=== PATIENT | female | born 1990 | race Caucasian/White ===

== ENCOUNTER 2019-11-16 22:16 | Inpatient (IN) ==
[2019-11-16] MEDS ORDERED: methylPREDNISolone SOD SUCC 125 MG/2 ML VIAL IV ONE (22:20)
[2019-11-16] MEDS ORDERED: 0.9 % SODIUM CHLORIDE 1,000 ML IV ONE (22:20)
[2019-11-16] MEDS ORDERED: MAGNESIUM SULFATE 2 GM/50 ML BAG IV ONE (22:30)
[2019-11-16] MEDS ORDERED: EPINEPHrine 1 MG/ML AMPUL SQ ONE (22:30)
[2019-11-16] MEDS ORDERED: ALBUTEROL SULFATE 5 MG/ML NEB SOLUTION BOTTLE NEB ONE (22:32)
--- NOTE | 2019-11-16 22:35 | Emergency Department Note ---
General Adult HPI - General Chief complaint: Cold/Flu Symptoms Stated complaint: cough, fever, asthma Time Seen by Provider: 11/16/19 22:19 Source: patient, EMS Mode of arrival: EMS Limitations: no limitations - History of Present Illness HPI Narrative: 29-year-old female comes in complaining of shortness of breath with wheezing and cough. She has been sick for the last 15 days and has had a fever. Has not taken Tylenol for several days however. No nausea vomiting or diarrhea. She had 1 breathing treatment at home and then [address] and is still wheezing. She does have a history of asthma - Related Data Home Medications Medication Instructions Recorded Confirmed epinephrine 0.3 mg/0.3 mL 0.3 mg IM ONCE 10/25/18 11/12/19 injection, auto-injector multivitamin 1 tab PO QAM 10/25/18 11/12/19 Previous Rx's Medication Instructions Recorded norgestimate-ethinyl estradiol 1 tab PO QDAY #28 tab 07/11/19 albuterol sulfate 90 mcg/actuation 90 mcg INHALATION Q6H PRN #18 g 09/18/19 aerosol inhaler sertraline 50 mg tablet 50 mg PO QDAY #30 tab 09/18/19 Albuterol Sulfate [Proair Hfa] 1 - 2 puff INH Q4-6HP PRN #1 11/05/19 hfa.aer.ad trazodone 50 mg tablet See Rx Instructions .ROUTE 11/05/19 .COMPLEX #30 tablet ipratropium 0.5 mg-albuterol 3 mg 3 ml INHALATION QID PRN #90 ml 11/12/19 (2.5 mg base)/3 mL nebulization soln nebulizers See Rx Instructions .ROUTE 11/12/19 .MEDSUPPLY #1 each prednisone 50 mg tablet 50 mg PO QDAY 5 Days #5 tab 11/12/19 Allergies Allergy/AdvReac Type Severity Reaction Status Date / Time latex Allergy Severe Other Verified 11/05/19 12:07 Review of Systems All systems ED: reviewed and negative except as stated. Past Medical History - Past Medical History Attestation: Yes: The following information was validated with the patient. Medical history: Reports: asthma Surgical history ED: Reports: no surgical history - Social History smoking status: Never smoker Alcohol use: Reports: Rarely Drug use: Reports: none Physical Exam Some distress secondary to coughing fits. Alert and oriented. Normocephalic atraumatic. Conjunctive are clear sclerae white nonicteric. No nasal discharge or congestion. Oropharynx pink and moist. Posterior pharynx is clear. Neck is supple without lymphadenopathy or thyromegaly. Heart is tachycardic. I cannot hear a murmur. Lungs with wheezing throughout all lung [place] and rhonchi. When she takes a deep breath she coughs. She is unable to speak in full sentences. Abdomen is soft nontender nondistended. No peritoneal signs or guarding. No pedal edema Limitations: no limitations Course Vital Signs Temperature 100.2 F H 11/16/19 22:17 Pulse Rate 133 H 11/16/19 22:17 Respiratory Rate 22 11/16/19 22:17 Blood Pressure 140/97 11/16/19 22:17 Pulse Oximetry (%) 98 11/16/19 22:17 Temperature 98.8 F 11/16/19 23:35 Pulse Rate 120 H 11/17/19 00:21 Respiratory Rate 16 11/17/19 00:21 Blood Pressure 122/77 11/17/19 00:16 Pulse Oximetry (%) 96 11/17/19 00:21 Medical Decision Making - Lab Data Lab results reviewed: Yes I reviewed the patient's lab results. Result diagrams: 11/16/19 22:45 11/16/19 22:45 Lab Results 11/16/19 11/16/19 11/16/19 Range/Units 22:45 22:45 22:45 WBC 17.3 H (4.50-11.00) K/mcL RBC 4.31 (3.59-5.38) M/mcL Hgb 12.2 (11.2-15.7) g/dL Hct 36.8 (34.1-44.9) % POC Hct 38.0 (36.0-48.0) % MCV 85.4 (80.0-100.0) fL MCH 28.3 (26.0-34.0) pg MCHC 33.2 (31.0-36.0) g/dL RDW 14.3 (11.5-14.5) % Plt Count 302 (140-440) K/mcL MPV 10.7 H (7.4-10.4) fL Gran % 75.6 (38.0-78.0) % Lymph % (Auto) 18.5 (15.5-49.0) % [place] % (Auto) 5.8 (1.0-12.0) % Eos % (Auto) 0 (0.0-7.0) % Baso % (Auto) 0.1 (0.0-2.0) % Gran # 13.08 H (1.80-8.00) K/mcL Lymph # (Auto) 3.20 (1.50-4.80) K/mcL [place] # (Auto) 1.01 H (0.10-0.90) K/mcL Eos # (Auto) 0 (0.00-0.70) K/mcL Baso # (Auto) 0.02 (0.00-0.30) K/mcL VBG Lactic Acid 2.6 H (0.5-2.0) mmol/L POC Sodium 140 (133-145) mmol/L Sodium 138 (133-145) mmol/L POC Potassium 3.8 (3.3-5.1) mmol/L Potassium 4.0 (3.3-5.1) mmol/L POC Chloride 108 (96-108) mmol/L Chloride 105 (96-108) mmol/L Carbon Dioxide 20 L (22-30) mmol/L POC Total CO2 22 (22-30) mmol/L Anion Gap 13.0 (8-16) POC BUN 12 (6-20) mg/dl BUN 12 (6-20) mg/dl Creatinine 0.6 (0.6-1.1) mg/dl POC Creatinine 0.5 L (0.6-1.1) mg/dl GFR Calculation 121 Glucose 113 H (70-105) mg/dL POC Glucose 112 H (70-105) mg/dL Calcium 8.9 (8.6-10.4) mg/dl POC WB Ioniz Calcium 1.17 (1.16-1.32) mmol/L Magnesium 1.9 (1.6-2.5) mg/dL Total Bilirubin < 0.2 (0.0-1.0) mg/dL AST 19 (0-37) U/l ALT 33 (0-40) U/l Alkaline Phosphatase 50 (39-117) U/L Troponin T (0-0.03) ng/ml NT-Pro-B Natriuret Pep 65.2 (0-125) pg/ml Total Protein 6.9 (5.9-8.4) gm/dL Albumin 4.0 (3.2-5.2) gm/dL Globulin 2.9 (2.2-3.7) gm/dL Albumin/Globulin Ratio 1.4 (1.0-2.3) Lipase 23 (7-60) U/L Procalcitonin (<0.10) ng/mL 11/16/19 11/16/19 Range/Units 22:45 22:45 WBC (4.50-11.00) K/mcL RBC (3.59-5.38) M/mcL Hgb (11.2-15.7) g/dL Hct (34.1-44.9) % POC Hct (36.0-48.0) % MCV (80.0-100.0) fL MCH (26.0-34.0) pg MCHC (31.0-36.0) g/dL RDW (11.5-14.5) % Plt Count (140-440) K/mcL MPV (7.4-10.4) fL Gran % (38.0-78.0) % Lymph % (Auto) (15.5-49.0) % [place] % (Auto) (1.0-12.0) % Eos % (Auto) (0.0-7.0) % Baso % (Auto) (0.0-2.0) % Gran # (1.80-8.00) K/mcL Lymph # (Auto) (1.50-4.80) K/mcL [place] # (Auto) (0.10-0.90) K/mcL Eos # (Auto) (0.00-0.70) K/mcL Baso # (Auto) (0.00-0.30) K/mcL VBG Lactic Acid (0.5-2.0) mmol/L POC Sodium (133-145) mmol/L Sodium (133-145) mmol/L POC Potassium (3.3-5.1) mmol/L Potassium (3.3-5.1) mmol/L POC Chloride (96-108) mmol/L Chloride (96-108) mmol/L Carbon Dioxide (22-30) mmol/L POC Total CO2 (22-30) mmol/L Anion Gap (8-16) POC BUN (6-20) mg/dl BUN (6-20) mg/dl Creatinine (0.6-1.1) mg/dl POC Creatinine (0.6-1.1) mg/dl GFR Calculation Glucose (70-105) mg/dL POC Glucose (70-105) mg/dL Calcium (8.6-10.4) mg/dl POC WB Ioniz Calcium (1.16-1.32) mmol/L Magnesium (1.6-2.5) mg/dL Total Bilirubin (0.0-1.0) mg/dL AST (0-37) U/l ALT (0-40) U/l Alkaline Phosphatase (39-117) U/L Troponin T < 0.01 (0-0.03) ng/ml NT-Pro-B Natriuret Pep (0-125) pg/ml Total Protein (5.9-8.4) gm/dL Albumin (3.2-5.2) gm/dL Globulin (2.2-3.7) gm/dL Albumin/Globulin Ratio (1.0-2.3) Lipase (7-60) U/L Procalcitonin 0.03 (<0.10) ng/mL Influenza swab is negative ABG shows a pH 7.47, CO2 32 and PO2 of 90. Lactic acid was 2.6 - Radiology Data Radiology results reviewed: Yes I reviewed the patient's radiology results. Chest x-ray is consistent with a viral pneumonia versus bronchitis, compatible with COVID Disposition Pt seen by [facility]/PA only: No Clinical Impression: Suspected COVID-19 virus infection, Viral pneumonia Asthma with acute exacerbation Qualifiers: Asthma severity: unspecified severity Asthma persistence: unspecified Qualified Code(s): J45.901 - Unspecified asthma with (acute) exacerbation Summary: Start IV fluids and Solu-Medrol as well. Magnesium sulfate drip plus epinephrine. Differential diagnosis includes bacterial versus viral infection triggering asthma infection. This could be causing bronchitis versus pneumonia or other pulmonary issue. We will get an x-ray and laboratory. Check flu swab. Presumed COVID but we will not test unless she needs to be hospitalized. I was going to do 10 mg of albuterol nebulized over an hour, heart neb, but respiratory therapy informed me that this is contraindicated if she has the COVID. In light of her blood gas which showed compensated hyperventilation, we will monitor for now Her tachycardia calm down a little bit into the 110s and down even into the 90s at times. However she still had trouble speaking full sentences. She could not take a full breath without tight coughing fits. Leukocytosis of 17 is noted. Chest x-ray is compatible with viral pneumonia versus bronchitis compatible with the COVID. Her ABG appears to be compensated hyperventilation and she is currently normoxic but I think she needs to come the hospital for further monitoring and care she is clearly having trouble breathing here. I briefly discussed these things with the patient she is agreeable with coming in the hospital for IV steroids and further testing and treatment I discussed the situation with Dr. Sykes , our hospitalist, who agreed to accept the patient for further care and evaluation in the hospital. He agreed with going ahead and starting treatment with Plaquenil and azithromycin. We will continue albuterol treatments as well as IV steroids and fluids. We will get a baseline EKG. I wrote holding orders for him; we will go ahead and test for viral respiratory panel and COVID Disposition: Xfer As Inpt ([facility]) Condition: Fair Referrals: Mare Boyer ARNP [Primary Care Provider] -
[2019-11-16] MEDS ORDERED: ACETAMINOPHEN 325 MG TABLET PO ONE (22:38)
[2019-11-16 22:57] LABS: POC Blood Urea Nitrogen 12 mg/dl (6-20); POC CO2 22 mmol/L (22-30); POC Calcium, Ionized 1.17 mmol/L (1.16-1.32); POC Chloride 108 mmol/L (96-108); POC Creatinine 0.5 mg/dl (0.6-1.1); POC Glucose, Random 112 mg/dL (70-105); POC Potassium 3.8 mmol/L (3.3-5.1); POC Sodium 140 mmol/L (133-145)
[2019-11-16 23:24] LABS: Basophils # (Auto) 0.02 K/mcL (0.00-0.30); Basophils % (Auto) 0.1 % (0.0-2.0); Eosinophils # (Auto) 0 K/mcL (0.00-0.70); Eosinophils % (Auto) 0 % (0.0-7.0); Granulocytes % (Auto) 75.6 % (38.0-78.0); Hematocrit 36.8 % (34.1-44.9); Hemoglobin 12.2 g/dL (11.2-15.7); Lymphocytes % (Auto) 18.5 % (15.5-49.0); Mean Cell Volume 85.4 fL (80.0-100.0); Mean Corpuscular HGB Conc 33.2 g/dL (31.0-36.0); Mean Platelet Volume 10.7 fL (7.4-10.4); Monocytes # (Auto) 1.01 K/mcL (0.10-0.90); Monocytes % (Auto) 5.8 % (1.0-12.0); Platelet Count 302 K/mcL (140-440); RBC 4.31 M/mcL (3.59-5.38); Red Cell Distribution Width 14.3 % (11.5-14.5); WBC 17.3 K/mcL (4.50-11.00)
[2019-11-16 23:46] LABS: proBNP 65.2 pg/ml (0-125)
[2019-11-16 23:49] LABS: ALT/SGPT 33 U/l (0-40); AST/SGOT 19 U/l (0-37); Albumin/Globulin Ratio 1.4 (1.0-2.3); Alkaline Phosphatase 50 U/L (39-117); Bilirubin,Total < 0.2 mg/dL (0.0-1.0); Blood Urea Nitrogen 12 mg/dl (6-20); Calcium 8.9 mg/dl (8.6-10.4); Carbon Dioxide 20 mmol/L (22-30); Chloride 105 mmol/L (96-108); Globulin 2.9 gm/dL (2.2-3.7); Glomerular Filtration Rate 121; Glucose 113 mg/dL (70-105)
[2019-11-17] MEDS ORDERED: AZITHROMYCIN 250 MG TABLET PO ONE (00:27)
[2019-11-17] MEDS ORDERED: IPRATROPIUM/ALBUTEROL SULFATE 1 PUFF INHALER INH SCH (00:29)
[2019-11-17] MEDS ORDERED: ONDANSETRON 4 MG/2 ML VIAL IV PRN ×2 (00:30→09:45)
[2019-11-17] MEDS ORDERED: ALBUTEROL SULFATE 1 PUFF INHALER INH PRN (01:26)
[2019-11-17] MEDS ORDERED: HYDROXYCHLOROQUINE 200 MG TABLET PO ONE (01:37)
[2019-11-17] MEDS: 0.9 % SODIUM CHLORIDE 1,000 ML IV SCH ×2 (01:38→23:25)
[2019-11-17] MEDS ORDERED: LEVALBUTEROL 0.63 MG/3 ML AMPUL.NEB NEB PRN (04:53)
[2019-11-17] MEDS ORDERED: METOPROLOL TARTRATE 5 MG/5 ML VIAL IV PRN (04:55)
[2019-11-17] MEDS ORDERED: LEVALBUTEROL 1.25 MG/3 ML AMPUL.NEB ONE (04:58)
[2019-11-17] MEDS: guaiFENesin/DEXTROMETHORPHAN ORAL SOL PO PRN (05:06)
[2019-11-17] MEDS: LEVALBUTEROL 1.25 MG/3 ML AMPUL.NEB NEB PRN ×2 (05:09→09:15)
[2019-11-17] MEDS ORDERED: methylPREDNISolone SOD SUCC 125 MG/2 ML VIAL IV SCH (06:00)
[2019-11-17] MEDS: HYDROXYCHLOROQUINE 200 MG TABLET PO SCH ×3 (08:27→21:10)
--- NOTE | 2019-11-17 09:29 | XRay Report ---
HISTORY: Wheezing and cough with fever FINDINGS: The lungs are clear and normally expanded. The heart size, pulmonary vasculature, mediastinum, liana and pleura are normal. There has been little change since 11/12/19, allowing for differences in technique. IMPRESSION: Normal exam Interpreted and Authenticated by: iWlbert Barr 11/17/19
--- NOTE | 2019-11-17 10:06 | Internal Med History&Physical ---
Medical - H&P: [facility] Patient information: Note initiated : 11/17/19 at 10:03 am Service Date, if different from initiated Date: [] Patient: Neida Emerson a 29 y/o F admitted on 11/17/19 for cough, fever, asthma. Chief Complaint: [sob x 15 days] History of present illness: Ms. Emerson is a 29 year old F with a history of asthma who presented to the ER due to increasing shortness of breath for 15 days. As per patient, patient started to have shortness of breath 15 days ago, which has been progressively worsening. She also has mild cough with small amount of clear sputum. Patient states that she went to [facility] for a meeting earlier this month. She developed these symptoms mentioned above 1 day after she came back. Otherwise she denies headache, dizziness, chest pain, abdominal pain, dysuria, nausea, vomiting or diarrhea. In the ER, respiratory panel and Covid 19 were sent. Azithromycin and hydroxych loroquine were started. When I saw this patient, she told me that she has a hx of asthma but this time is different from previous asthma attacks. Review of systems: Positive for anemia all other systems were reviewed and are negative. Medical - H&P: PMH Medical history: Asthma Family history: reviewed and not pertinent (Mother has diabetes) Social history: Denies smoking, drinking alcohol or using drugs Drug use: none Alcohol use: none Medical - H&P: Meds Home Medications Medication Instructions Recorded Confirmed Type epinephrine 0.3 mg/0.3 mL 0.3 mg IM ONCE 10/25/18 11/17/19 History injection, auto-injector norgestimate-ethinyl estradiol 1 tab PO QDAY #28 tab 07/11/19 11/17/19 Rx albuterol sulfate 90 mcg/actuation 90 mcg INHALATION Q6H PRN #18 g 09/18/19 11/17/19 Rx aerosol inhaler sertraline 50 mg tablet 50 mg PO QDAY #30 tab 09/18/19 11/17/19 Rx Albuterol Sulfate [Proair Hfa] 1 - 2 puff INH Q4-6HP PRN #1 11/05/19 11/17/19 Rx hfa.aer.ad trazodone 50 mg tablet See Rx Instructions .ROUTE 11/05/19 11/17/19 Rx .COMPLEX #30 tablet ipratropium 0.5 mg-albuterol 3 mg 3 ml INHALATION QID PRN #90 ml 11/12/19 11/17/19 Rx (2.5 mg base)/3 mL nebulization soln nebulizers See Rx Instructions .ROUTE 11/12/19 11/17/19 Rx .MEDSUPPLY #1 each prednisone 50 mg tablet 50 mg PO QDAY 5 Days #5 tab 11/12/19 11/17/19 Rx Allergies Allergy/AdvReac Type Severity Reaction Status Date / Time latex Allergy Severe Other Verified 11/05/19 12:07 Medical - H&P: Exam - Constitutional Vitals: Temp Pulse Resp BP Pulse Ox 99.3 F H 126 H 15 108/87 96 11/17/19 08:01 11/17/19 09:58 11/17/19 09:58 11/17/19 09:01 11/17/19 09:58 - Other Additional findings: General - NAD, sitting up in bed, well groomed Eyes - PERRLA, EOM intact ENT no rhinorrhea, no noticeable or palpable swelling, no redness or rash around throat or on face Neck supple, no JVD, no thyromegaly Respiratory: Lungs - no use of accessory muscles, wheezing and rhonchi b/l. Cardiovascular - RRR no m/r/g, GI - Normal bowel sounds, no distended, soft and no tenderness Extremeties - No edema, cyanosis or clubbing Hemo/lymphatic/immune no lymphadenopathy Neurological Alert and oriented x 3, CN 2-12 grossly intact, no focal neurological deficits. Psychiatry flat affect Medical - H&P: Reslt - Labs CBC & Chem 7: 11/16/19 22:45 11/16/19 22:45 Labs: Short CBC 11/16/19 Range/Units 22:45 WBC 17.3 H (4.50-11.00) K/mcL Hgb 12.2 (11.2-15.7) g/dL Hct 36.8 (34.1-44.9) % Plt Count 302 (140-440) K/mcL BMP 11/16/19 22:45 Sodium 138 Potassium 4.0 Chloride 105 Carbon Dioxide 20 L BUN 12 Creatinine 0.6 Glucose 113 H Calcium 8.9 Cardiac Enzymes 11/16/19 Range/Units 22:45 Troponin T < 0.01 (0-0.03) ng/ml Liver Function 11/16/19 Range/Units 22:45 Total Bilirubin < 0.2 (0.0-1.0) mg/dL AST 19 (0-37) U/l ALT 33 (0-40) U/l Alkaline Phosphatase 50 (39-117) U/L Albumin 4.0 (3.2-5.2) gm/dL Medical - H&P: A/P - Narrative A/P Narrative: Assessment: 1. SOB/cough - Covid19 infection? 2. Asthma exacerbation 3. Sinus tachycardia 4. Leukocytosis Plan: 1. CXR -no significance Respiratory panel and Covid 19 were sent QTC 448 on EKG Hydroxychloroquine 200mg tid and azithromycin were started in the ER. I would like to continue both now and will change doses tomorrow. 2. We will treat the patient as asthma attack Solu-Medrol was started in the ER. Although steroid is contraindicated in Covid 19 pts, I feel I have to give her some steroid since she has obvious wheezing. I will decrease the dose to 62.5 mg bid from Q6hrs. inhalers 3. I would like to start low-dose metoprolol 12.5 mg twice daily for her sinus tachycardia 4. White blood cells 17.3 Procalcitonin negative Azithromycin 5. DVT prophylaxis: Lovenox 6. CODE STATUS: Full
[2019-11-17] MEDS ORDERED: METOPROLOL TARTRATE 25 MG TABLET PO SCH (10:29)
[2019-11-17] MEDS ORDERED: 0.9 % SODIUM CHLORIDE 500 ML IV ONE (12:46)
[2019-11-17] MEDS: ENOXAPARIN 40 MG/0.4 ML SYRINGE SQ SCH (12:50)
[2019-11-17] MEDS: IPRATROPIUM 2.5 ML AMPUL.NEB NEB SCH ×4 (12:51→23:26)
[2019-11-17] MEDS: 0.9 % SODIUM CHLORIDE 10 ML SYRINGE IV SCH ×2 (16:19→21:13)
[2019-11-17] MEDS ORDERED: ACETAMINOPHEN 325 MG TABLET PO PRN (18:29)
[2019-11-17] MEDS: methylPREDNISolone SOD SUCC 125 MG/2 ML VIAL IV SCH (21:10)
[2019-11-17] MEDS: DOCUSATE SODIUM 100 MG CAPSULE PO SCH (21:10)
[2019-11-17] MEDS: traZODone HCL 50 MG TABLET PO SCH (21:10)
[2019-11-17] MEDS: Norgestimate-Ethinyl Estradiol [Tri-Sprintec Tablet] PO SCH (21:12)
[2019-11-18] MEDS: IPRATROPIUM 2.5 ML AMPUL.NEB NEB SCH ×2 (04:05→08:07)
[2019-11-18] MEDS: 0.9 % SODIUM CHLORIDE 10 ML SYRINGE IV SCH ×3 (05:38→21:44)
[2019-11-18 06:48] LABS: Basophils # (Auto) 0.02 K/mcL (0.00-0.30); Basophils % (Auto) 0.1 % (0.0-2.0); Eosinophils # (Auto) 0 K/mcL (0.00-0.70); Eosinophils % (Auto) 0 % (0.0-7.0); Granulocytes % (Auto) 82.9 % (38.0-78.0); Hematocrit 35.9 % (34.1-44.9); Hemoglobin 11.9 g/dL (11.2-15.7); Lymphocytes # (Auto) 2.87 K/mcL (1.50-4.80); Lymphocytes % (Auto) 13.8 % (15.5-49.0); Mean Cell Volume 85.5 fL (80.0-100.0); Mean Corpuscular HGB Conc 33.1 g/dL (31.0-36.0); Mean Platelet Volume 10.9 fL (7.4-10.4); Monocytes # (Auto) 0.66 K/mcL (0.10-0.90); Monocytes % (Auto) 3.2 % (1.0-12.0); Platelet Count 322 K/mcL (140-440); Red Cell Distribution Width 14.5 % (11.5-14.5); WBC 20.9 K/mcL (4.50-11.00)
[2019-11-18 06:59] LABS: Phosphorous 3.8 mg/dL (2.7-4.5)
[2019-11-18 07:06] LABS: ALT/SGPT 42 U/l (0-40); AST/SGOT 18 U/l (0-37); Albumin 3.8 gm/dL (3.2-5.2); Albumin/Globulin Ratio 1.3 (1.0-2.3); Alkaline Phosphatase 47 U/L (39-117); Bilirubin,Total 0.2 mg/dL (0.0-1.0); Blood Urea Nitrogen 15 mg/dl (6-20); Calcium 9.1 mg/dl (8.6-10.4); Carbon Dioxide 22 mmol/L (22-30); Chloride 104 mmol/L (96-108); Globulin 2.9 gm/dL (2.2-3.7); Glomerular Filtration Rate 121; Glucose 132 mg/dL (70-105)
[2019-11-18] MEDS: PANTOPRAZOLE 40 MG TABLET PO SCH (07:24)
[2019-11-18] MEDS: LEVALBUTEROL 1.25 MG/3 ML AMPUL.NEB NEB PRN (08:08)
[2019-11-18] MEDS ORDERED: IPRATROPIUM/ALBUTEROL 3 ML AMPUL.NEB NEB PRN (08:14)
[2019-11-18] MEDS ORDERED: ALBUTEROL SULFATE 1 PUFF INHALER INH PRN (08:19)
[2019-11-18] MEDS: methylPREDNISolone SOD SUCC 125 MG/2 ML VIAL IV SCH (08:52)
[2019-11-18] MEDS: ENOXAPARIN 40 MG/0.4 ML SYRINGE SQ SCH (08:52)
[2019-11-18] MEDS: HYDROXYCHLOROQUINE 200 MG TABLET PO SCH ×2 (08:53→21:44)
[2019-11-18] MEDS: SERTRALINE 50 MG TABLET PO SCH (08:53)
[2019-11-18] MEDS: DOCUSATE SODIUM 100 MG CAPSULE PO SCH ×2 (08:53→21:44)
[2019-11-18] MEDS: AZITHROMYCIN 250 MG in DEXTROSE 5% IN WATER 250 ML IV SCH (10:29)
--- NOTE | 2019-11-18 13:25 | Internal Med Progress Note ---
Medical - PN: Subj Patient information: Note initiated : 11/18/19 at 1:21 pm Service Date, if different from initiated Date: [] Patient: Neida Emerson a 29 y/o F admitted on 11/17/19 for cough, fever, asthma. Chief Complaint: [] Interval history: Ms. Emerson is a 29 year old F with a history of asthma who presented to the ER due to increasing shortness of breath for 15 days. 11/17 Pt feels improved in breathing but still has chest tightness. Denies sore throat fever, chills, or nausea vomiting. Covid-19 result still pending - Constitutional Vitals: Vital Signs Temp Pulse Resp BP Pulse Ox 98.5 F 94 H 21 113/71 97 11/18/19 08:00 11/18/19 12:00 11/18/19 12:00 11/18/19 12:00 11/18/19 12:00 Period Temp Pulse Resp BP Sys/Jones Pulse Ox Last 24 Hr 98.2 F-99.0 F 62-119 14-50 105-125/60-84 94-99 Intake and Output 11/17/19 11/18/19 11/18/19 21:59 05:59 13:59 Intake Total 1500 Output Total 7049 814 5157 Balance 500 -650 -2150 Weight 69.082 kg 69.082 kg Patient Weight 11/19/19 05:59 Weight 69.082 kg Intake & Output: Intake & Output 11/17/19 11/18/19 11/18/19 21:59 05:59 13:59 Intake Total 1500 Output Total 3204 448 5949 Balance 500 -650 -2150 Weight 69.082 kg 69.082 kg Intake: IV 1500 Sodium Chloride 0.9% 1,000 ml @ 1000 50 mls/hr IV .Q20H [facility] Rx#: [id number] Sodium Chloride 0.9% 500 ml @ 500 Wide Open 250 mls/hr IV BOLUS ONE Rx#:[id number] Output: Void Amount 3728 119 7782 Urine/Stool Mix 800 Other: Meal Breakfast Percent of Meal Consumed 100% Urine Appearance Clear Clear Urine Color Pale Pale Urine Odor Normal Normal Stool Size Moderate Stool Color Brown Stool Consistency Soft Formed Loose # Voids 1 - Additional findings Additional findings: General - NAD, sitting up in bed, well groomed Eyes - PERRLA, EOM intact ENT no rhinorrhea, no noticeable or palpable swelling, no redness or rash around throat or on face Neck supple, no JVD, no thyromegaly Respiratory: Lungs - no use of accessory muscles, wheezing and rhonchi b/l (disappeared). Cardiovascular - RRR no m/r/g, GI - Normal bowel sounds, no distended, soft and no tenderness Extremeties - No edema, cyanosis or clubbing Hemo/lymphatic/immune no lymphadenopathy Neurological Alert and oriented x 3, CN 2-12 grossly intact, no focal n eurological deficits. Psychiatry flat affect Medical - PN: Obj Da - Labs CBC & Chem 7: 11/18/19 05:49 11/18/19 05:49 Labs: Abnormal Lab Results 11/18/19 11/18/19 11/17/19 05:49 05:49 17:43 WBC 20.9 H MPV 10.9 H Gran % 82.9 H Lymph % (Auto) 13.8 L Gran # 17.32 H Fisher # (Auto) VBG Lactic Acid Carbon Dioxide POC Creatinine Glucose 132 H POC Glucose ALT 42 H NT-Pro-B Natriuret Pep 204.4 H 11/17/19 11/17/19 11/16/19 17:43 10:29 22:45 WBC MPV Gran % Lymph % (Auto) Gran # Fisher # (Auto) VBG Lactic Acid 2.8 H 4.9 H* 2.6 H Carbon Dioxide POC Creatinine Glucose POC Glucose ALT NT-Pro-B Natriuret Pep 11/16/19 11/16/19 22:45 22:45 WBC 17.3 H MPV 10.7 H Gran % Lymph % (Auto) Gran # 13.08 H Fisher # (Auto) 1.01 H VBG Lactic Acid Carbon Dioxide 20 L POC Creatinine 0.5 L Glucose 113 H POC Glucose 112 H ALT NT-Pro-B Natriuret Pep Meds: Medications Acetaminophen (Tylenol) 650 mg PO Q4-6HP PRN; Protocol PRN Reason: Per Pain Protocol/Fever > 101 Albuterol Sulfate (Ventolin) 2 puff INH Q4-6HP PRN PRN Reason: Shortness Of Breath Or Wheezing Albuterol/Ipratropium (Duoneb) 3 ml NEB Q4HP PRN PRN Reason: Shortness Of Breath Docusate Sodium (Colace) 100 mg PO BID [facility] Last Admin: 11/18/19 08:53 Dose: 100 mg Documented by: Enoxaparin Sodium (Lovenox) 40 mg SQ DAILY [facility] Last Admin: 11/18/19 08:52 Dose: 40 mg Documented by: Guaifenesin (Robitussin Dm) 10 ml PO Q4HP PRN PRN Reason: Cough Last Admin: 11/17/19 05:06 Dose: 10 ml Documented by: Hydroxychloroquine Sulfate (Plaquenil) 200 mg PO BID [facility] Last Admin: 11/18/19 08:53 Dose: 200 mg Documented by: Sodium Chloride (Sodium Chloride 0.9%) 1,000 mls @ 50 mls/hr IV .Q20H [facility] Last Admin: 11/17/19 23:25 Dose: 50 mls/hr Documented by: Azithromycin 250 mg/ Dextrose 250 mls @ 250 mls/hr IV DAILY [facility]; Protocol Stop: 11/20/19 09:59 Last Admin: 11/18/19 10:29 Dose: 250 mls/hr Documented by: Levalbuterol HCl (Xopenex) 1.25 mg NEB Q4HP PRN PRN Reason: Shortness Of Breath Last Admin: 11/18/19 08:08 Dose: 1.25 mg Documented by: Metoprolol Tartrate (Lopressor) 2.5 mg IV Q5M PRN PRN Reason: Tachyarrhythmias Pantoprazole Sodium (Protonix) 40 mg PO QAMAC [facility] Last Admin: 11/18/19 07:24 Dose: 40 mg Documented by: Norgestimate-Ethinyl Estradiol [Tri- Sprintec Tablet] 1 dose PO HS@2200 [facility] Last Admin: 11/17/19 21:12 Dose: 1 dose Documented by: Sertraline HCl (Zoloft) 50 mg PO QDAY [facility] Last Admin: 11/18/19 08:53 Dose: 50 mg Documented by: Sodium Chloride (Saline Flush) 10 ml IV Q8 [facility] Last Admin: 11/18/19 12:19 Dose: Not Given Documented by: Trazodone HCl (Desyrel) 25 mg PO HS [facility] Last Admin: 11/17/19 21:10 Dose: 25 mg Documented by: Medical - PN: A/P - Time Spent With Patient Total time spent is greater than 50% in coordination of care (as documented) at patient's floor/unit and/or counseling patient: - Narrative A/P Narrative: Assessment: 1. SOB/cough - Covid19 infection? 2. Asthma exacerbation 3. Sinus tachycardia 4. Leukocytosis Plan: 1. CXR -no significance Respiratory panel and Covid 19 were sent QTC 448 on EKG Changed hydroxychloroquine to 200mg bid and continue azithromycin. 2. We will treat the patient as asthma attack Discontinued steroid today since her wheezing resolved and steroid may reduce her ability to fight viral infection. inhalers 3. Discontinued metoprolol 12.5 mg twice daily 4. White blood cells went up to 20 which could result from use of steroid. Procalcitonin negative Azithromycin 5. DVT prophylaxis: Lovenox 6. CODE STATUS: Full
--- NOTE | 2019-11-18 19:17 | Consultation ---
DATE OF CONSULTATION: 11/18/2019 HISTORY OF PRESENT ILLNESS: The patient is a 29-year-old female admitted on 11/16/2019 after presenting to the emergency room with a chief complaint of shortness of breath. She works for the [employer]. She had traveled to [place] approximately 2 weeks ago for a week-long conference with people in her field from [place], [place], [place], and [place]. Twenty four to 48 hours after returning, she developed an unwell syndrome. This was associated with a temperature from 99.6 to 100 and a small fraction. She has a baseline of exercise-induced asthma with p.r.n. albuterol use and she noticed gradually increasing difficulty with her breathing over that timeframe. She eventually sought additional assistance at [facility] and subsequently due to worsened breathing, presented for evaluation. She does have allergies, but denies any new exposures in that regard. She denies sputum production of significance. She has a 2-year-old in the home as well as her . No unusual pets, plants, or birds in that environment. She has been working for the [employer] for some time. She denies known exposure to tuberculosis and reports a previous negative skin test in the last 5 to 10 years. She reports growing up in [place], but never having any difficulty with coccidioidomycosis. She denies cardiac difficulties. She denies symptomatic gastroesophageal reflux disease. She does not take antacid medicines. She reports sleeping prone with 1 pillow or sort of body pillow. She denies a bedtime snack. REVIEW OF SYSTEMS: Negative on detailed questioning for additional focus of abnormality. PHYSICAL EXAMINATION: GENERAL: The patient is a fatigued appearing 29-year-old female, coughing with frequency during the course of the history and physical examination. It sounds dry and nonproductive. HEENT: Head is atraumatic and normocephalic. Eyes: BRENDA, EOMI. NECK: Supple. Carotids without bruits. LUNGS: What air sounds are heard are quite clear. Respirations are somewhat shallow and rapid, but no wheeze is elicited on mild forced expiration. There are no rhonchi. There is no rale. HEART: Regular, S1, S2. No gallop, rub, jugular venous distention, or edema. ABDOMEN: Soft. Bowel sounds are present. No apparent mass or organomegaly. No tenderness. BONES, JOINTS, AND EXTREMITIES: Without acute changes. NEUROLOGIC: Exam is nonfocal. LABORATORY DATA: On presentation to the emergency room included a white count at 17.3, hemoglobin of 12.2, and a platelet count of 302,000. The sodium was 138 with a potassium of 4.0 and a bicarbonate of 20. An arterial blood gas done on 11/16/2019 revealed a PaO2 of 90 mmHg and PaCO2 of 32 mmHg with a pH of 7.47 indicating an acute alveolar hyperventilation. IMAGING DATA: The chest x-ray is read as a normal exam. Review of the chest x-ray does not indicate significant hyperinflation. There may be a degree of interstitial prominence, but no focal areas of infiltrate or change in the lung parenchyma to my eye. An EKG was performed and this demonstrated a sinus tachycardia with a heart rate of 104. The patient had been receiving beta agonist and a dose of adrenaline. Review of the notes indicates that the patient had been receiving prednisone prior to presentation orally. The patient's microbiology indicates negative viral panels for routine organisms and a sputum culture preliminary list Klebsiella pneumoniae and Haemophilus parainfluenzae. Screen for methicillin resistant staph is negative. Venous blood gas showed an elevated lactic acid at 4.9 and on a draw earlier today improved to 2.3. IMPRESSION: A 29-year-old female presenting with dyspnea syndrome in the setting of previous exercise-induced asthma with elevated white count, ( increased WBC perhaps secondary to steroid administration) and sputum suggestive of both Klebsiella pneumoniae and Haemophilus parainfluenzae (no WBC seen on gram stain ?contaminate / colonization?). Patient is currently on hydroxychloroquine and azithromycin. She is on Lovenox DVT prophylaxis. It is not clear that she remains on Solu-Medrol. The possibility certainly exist in the current setting that this represents a COVID-19 syndrome. I would recommend that she have a repeat one view chest in the morning along with a room air arterial blood gas to help document her oxygenation and carbon dioxide exchange as well as any changes regarding her radiographic infiltrates. Her current therapy with the question of the nature of any steroid therapy for what might be a routine asthma exacerbation needs to be considered. Fortunately, she seems stable at this time and would recommend continuing the current regimen, will discuss and follow with. Thank you for allowing me to participate in the care of this pleasant young lady. Should you have questions, do not hesitate to call. KJP:hn Job ID: [id number] Doc ID: [id number] Mike MAHAJAN
[2019-11-18] MEDS: 0.9 % SODIUM CHLORIDE 1,000 ML IV SCH (21:43)
[2019-11-18] MEDS: traZODone HCL 50 MG TABLET PO SCH (21:44)
[2019-11-18] MEDS: Norgestimate-Ethinyl Estradiol [Tri-Sprintec Tablet] PO SCH (21:44)
[2019-11-18] MEDS: guaiFENesin/DEXTROMETHORPHAN ORAL SOL PO PRN (21:46)
[2019-11-19] MEDS: 0.9 % SODIUM CHLORIDE 10 ML SYRINGE IV SCH (05:22)
[2019-11-19 06:46] LABS: Basophils # (Auto) 0.03 K/mcL (0.00-0.30); Basophils % (Auto) 0.2 % (0.0-2.0); Eosinophils # (Auto) 0.01 K/mcL (0.00-0.70); Eosinophils % (Auto) 0.1 % (0.0-7.0); Granulocytes % (Auto) 63.3 % (38.0-78.0); Hematocrit 33.2 % (34.1-44.9); Hemoglobin 10.9 g/dL (11.2-15.7); Lymphocytes # (Auto) 5.34 K/mcL (1.50-4.80); Lymphocytes % (Auto) 29.5 % (15.5-49.0); Mean Corpuscular HGB Conc 32.8 g/dL (31.0-36.0); Mean Platelet Volume 10.8 fL (7.4-10.4); Monocytes # (Auto) 1.24 K/mcL (0.10-0.90); Monocytes % (Auto) 6.9 % (1.0-12.0); Platelet Count 290 K/mcL (140-440); RBC 3.86 M/mcL (3.59-5.38); Red Cell Distribution Width 14.5 % (11.5-14.5); WBC 18.1 K/mcL (4.50-11.00)
[2019-11-19 07:05] LABS: ALT/SGPT 53 U/l (0-40); AST/SGOT 18 U/l (0-37); Albumin 3.6 gm/dL (3.2-5.2); Albumin/Globulin Ratio 1.4 (1.0-2.3); Alkaline Phosphatase 39 U/L (39-117); Bilirubin,Total 0.2 mg/dL (0.0-1.0); Blood Urea Nitrogen 19 mg/dl (6-20); Calcium 8.4 mg/dl (8.6-10.4); Carbon Dioxide 23 mmol/L (22-30); Chloride 104 mmol/L (96-108); Globulin 2.5 gm/dL (2.2-3.7); Glomerular Filtration Rate 115; Glucose 92 mg/dL (70-105)
--- NOTE | 2019-11-19 07:38 | XRay Report ---
CLINICAL INFORMATION: Dyspnea COMPARISON: 04/09/2020 TECHNIQUE: Portable FINDINGS: The heart size, mediastinum and pulmonary vessels are unremarkable. The lungs are clear. There are no effusions. The bones and soft tissues are within normal limits. IMPRESSION: Normal chest. Interpreted and Authenticated by: Andre Diaz 11/19/19
[2019-11-19] MEDS: HYDROXYCHLOROQUINE 200 MG TABLET PO SCH (08:30)
[2019-11-19] MEDS: AZITHROMYCIN 250 MG in DEXTROSE 5% IN WATER 250 ML IV SCH (08:30)
[2019-11-19] MEDS: DOCUSATE SODIUM 100 MG CAPSULE PO SCH (08:30)
[2019-11-19] MEDS: SERTRALINE 50 MG TABLET PO SCH (08:30)
[2019-11-19] MEDS: ENOXAPARIN 40 MG/0.4 ML SYRINGE SQ SCH (08:30)
[2019-11-19] MEDS: PANTOPRAZOLE 40 MG TABLET PO SCH (08:31)
--- NOTE | 2019-11-19 10:55 | Discharge Summary ---
Medical - DS: Prov Patient information: Note initiated : 11/19/19 at 10:51 am Service Date, if different from initiated Date: [] Patient: Neida Emerson a 29 y/o F admitted on 11/17/19 for cough, fever, asthma. Chief Complaint: [] Referred to H&P by Kendall Sykes M.D.> 11/17/19 Ms. Emerson is a 29 year old F with a history of asthma who presented to the ER due to increasing shortness of breath for 15 days. As per patient, patient started to have shortness of breath 15 days ago, which has been progressively wo rsening. She also has mild cough with small amount of clear sputum. Patient states that she went to [facility] for a meeting earlier this month. She developed these symptoms mentioned above 1 day after she came back. Otherwise she denies headache, dizziness, chest pain, abdominal pain, dysuria, nausea, vomiting or diarrhea. In the ER, respiratory panel and Covid 19 were sent. Azithromycin and hydroxychloroquine were started. When I saw this patient, she told me that she has a hx of asthma but this time is different from previous asthma attacks. Date of admission: 11/17/19 01:30 Discharge date: 11/19/19 (.) Primary care physician: Mare Boyer Consults: 11/17/19 Consult to Physician [CONS] Stat Comment: Consulting Provider: Kendall Sykes Reason For Exam: Physician to Consult 11/18/19 15:31 Consult to Physician [CONS] Routine Comment: Consulting Provider: Mike Severino Reason For Exam: Physician to Consult Medical - DS: Meds - Discharge Medications Prescriptions: Azithromycin 250 mg PO DAILY #1 tab Transmission Status: Pending to [employer] [id number] Metoprolol Tartrate [Lopressor] 2.5 mg IV Q5M PRN #30 vial PRN Reason: Tachyarrhythmias Transmission Status: Pending to [employer] [address] Hydroxychloroquine [Plaquenil] 200 mg PO BID #5 tab Transmission Status: Pending to [employer] [address] guaiFENesin/DEXTROMETHORPHAN [Robitussin Dm] 10 ml PO Q6HP PRN #100 ml PRN Reason: Cough Transmission Status: Pending to [employer] [id number] Active and Home Medications: Home Medications epinephrine 0.3 mg/0.3 mL injection, auto-injector 0.3 mg IM ONCE 10/25/18 [History Confirmed 11/17/19 Last Taken Unknown] norgestimate-ethinyl estradiol 1 tab PO QDAY #28 tab 07/11/19 [Rx Confirmed 11/17/19 Last Taken Unknown] albuterol sulfate 90 mcg/actuation aerosol inhaler 90 mcg INHALATION Q6H PRN #18 g 09/18/19 [Rx Confirmed 11/17/19 Last Taken Unknown] sertraline 50 mg tablet 50 mg PO QDAY #30 tab 09/18/19 [Rx Confirmed 11/17/19 Last Taken Unknown] Albuterol Sulfate [Proair Hfa] 1 - 2 puff INH Q4-6HP PRN #1 hfa.aer.ad 11/05/19 [Rx Confirmed 11/17/19 Last Taken Unknown] trazodone 50 mg tablet See Rx Instructions .ROUTE .COMPLEX #30 tablet 11/05/19 [Rx Confirmed 11/17/19 Last Taken Unknown] ipratropium 0.5 mg-albuterol 3 mg (2.5 mg base)/3 mL nebulization soln 3 ml INHALATION QID PRN #90 ml 11/12/19 [Rx Confirmed 11/17/19 Last Taken Unknown] nebulizers See Rx Instructions .ROUTE .MEDSUPPLY #1 each 11/12/19 [Rx Confirmed 11/17/19 Last Taken Unknown] prednisone 50 mg tablet 50 mg PO QDAY 5 Days #5 tab 11/12/19 [Rx Confirmed 11/17/19 Last Taken Unknown] Medical - DS: Hosp Hospital Course: Assessment: 1. SOB/cough - Covid19 infection? 2. Asthma exacerbation 3. Sinus tachycardia 4. Leukocytosis 5. Lung nodule and thyroid nodule Plan: 1. CXR -no significance Respiratory panel and Covid 19 were sent QTC 448 on EKG Hydroxychloroquine 200mg tid and azithromycin were started in the ER. she will need 3 more days of Hydroxychloroquine 200mg bid and one more day of azithromycin. 2. We will treat the patient as asthma attack Solu-Medrol was started in the ER. Although steroid is contraindicated in Covid 19 pts, I feel I have to give her some steroid since she has obvious wheezing. Steroid was stopped. inhalers 3. I would like to start low-dose metoprolol 12.5 mg twice daily for her sinus tachycardia 4. repeat cbc Procalcitonin negative Azithromycin 5. f/u with pcp for thyroid and lung nodules. 11/17 Pt feels improved in breathing but still has chest tightness. Denies sore throat fever, chills, or nausea vomiting. Covid-19 result still pending 11/18 Pt feels much better, less sob. vital signs are stable. SpO2 >=94% on RM. Trial Examiner Dr. Severino agreed with current treatment. She has leukocytosis. But afebrile. No clinical evidence of infection. It could result from use of steroid. CXR showed Covid -19 test - still pending. She livers with and daughter. Discussed the discharge plan (to home) on morning meeting. All including marketing sales supervisor agreed with the plan. We will f/u Covid -19 test result. In case it is positive, we will inform pt and pcp and manage pt based on her condition. Pt will be discharged to home today to f/u with pcp. She needs to strictly stay at home for 10 days. call pcp for medical issue. Check CBC in 3 days to make sure leukocytosis resolved. Discharge diagnosis: asthma exacerbation - Time Spent with Patient Total time spent providing and/or coordinating discharge services: Greater than 30 minutes Medical - DS: Exam - Constitutional Vitals: Vital Signs Temp Pulse Resp BP Pulse Ox 11/19/19 10:06 86 15 97 11/19/19 10:01 108 H 19 120/85 99 11/19/19 08:22 71 22 95 11/19/19 08:01 97.6 F 76 21 123/83 98 11/19/19 08:00 19 95 11/19/19 07:58 70 19 97 11/19/19 06:00 98 H 22 123/88 99 11/19/19 05:19 67 15 98 11/19/19 04:00 71 11 L 115/82 98 11/19/19 02:35 72 16 97 11/19/19 02:00 87 19 115/86 99 11/19/19 00:00 98.4 F 73 20 95/71 96 11/18/19 22:01 85 16 122/80 98 11/18/19 20:01 81 25 H 118/76 99 11/18/19 20:00 98 11/18/19 18:01 95 H 21 122/71 96 11/18/19 17:50 98.7 F 108 H 28 H 125/84 97 11/18/19 14:01 99.2 F H 93 H 13 129/77 97 11/18/19 14:00 13 97 11/18/19 12:00 94 H 21 113/71 97 Intake and Output 11/18/19 11/19/19 11/19/19 21:59 05:59 13:59 Intake Total 1480 250 Output Total 500 850 200 Balance 980 -850 50 Intake: IV 1000 250 Sodium Chloride 0.9% 1,000 ml @ 1000 50 mls/hr IV .Q20H [facility] Rx#: [id number] Zithromax 250 mg In Dextrose 5% 250 in Water 250 ml @ 250 mls/hr IV DAILY [facility] Rx#:[id number] Oral 480 Output: Void Amount 500 850 200 Other: Meal Lunch Percent of Meal Consumed 100% Urine Appearance Clear Clear Urine Color Pale Pale Urine Odor Normal Normal Stool Size Moderate Moderate Stool Color Brown Brown Stool Consistency Soft Soft Formed Formed Loose Loose Weight 68.13 kg - Other Additional findings: General - NAD, sitting up in bed, well groomed Eyes - PERRLA, EOM intact ENT no rhinorrhea, no noticeable or palpable swelling, no redness or rash around throat or on face Neck supple, no JVD, no thyromegaly Respiratory: Lungs - no use of accessory muscles, wheezing and rhonchi b/l (disappeared). Cardiovascular - RRR no m/r/g, GI - Normal bowel sounds, no distended, soft and no tenderness Extremeties - No edema, cyanosis or clubbing Hemo/lymphatic/immune no lymphadenopathy Neurological Alert and oriented x 3, CN 2-12 grossly intact, no focal neurological deficits. Psychiatry flat affect Medical - DS: Data Labs on day of discharge: Labs from last 24 hours 11/19/19 11/19/19 11/19/19 06:00 06:00 06:00 WBC 18.1 H RBC 3.86 Hgb 10.9 L Hct 33.2 L MCV 86.0 MCH 28.2 MCHC 32.8 RDW 14.5 Plt Count 290 MPV 10.8 H Gran % 63.3 Lymph % (Auto) 29.5 Webb % (Auto) 6.9 Eos % (Auto) 0.1 Baso % (Auto) 0.2 Gran # 11.47 H Lymph # (Auto) 5.34 H Webb # (Auto) 1.24 H Eos # (Auto) 0.01 Baso # (Auto) 0.03 VBG Lactic Acid 2.0 Sodium 139 Potassium 3.8 Chloride 104 Carbon Dioxide 23 Anion Gap 12.0 BUN 19 Creatinine 0.7 GFR Calculation 115 Glucose 92 Calcium 8.4 L Total Bilirubin 0.2 AST 18 ALT 53 H Alkaline Phosphatase 39 Total Protein 6.1 Albumin 3.6 Globulin 2.5 Albumin/Globulin Ratio 1.4 Specimen Source SARS Virus RNA (PCR) SARS-CoV-2 RNA (RT-PCR) 11/19/19 11/18/19 11/18/19 00:30 18:28 12:29 WBC RBC Hgb Hct MCV MCH MCHC RDW Plt Count MPV Gran % Lymph % (Auto) Webb % (Auto) Eos % (Auto) Baso % (Auto) Gran # Lymph # (Auto) Webb # (Auto) Eos # (Auto) Baso # (Auto) VBG Lactic Acid 2.1 H Pending 2.3 H Sodium Potassium Chloride Carbon Dioxide Anion Gap BUN Creatinine GFR Calculation Glucose Calcium Total Bilirubin AST ALT Alkaline Phosphatase Total Protein Albumin Globulin Albumin/Globulin Ratio Specimen Source SARS Virus RNA (PCR) SARS-CoV-2 RNA (RT-PCR) 11/17/19 01:58 WBC RBC Hgb Hct MCV MCH MCHC RDW Plt Count MPV Gran % Lymph % (Auto) Webb % (Auto) Eos % (Auto) Baso % (Auto) Gran # Lymph # (Auto) Webb # (Auto) Eos # (Auto) Baso # (Auto) VBG Lactic Acid Sodium Potassium Chloride Carbon Dioxide Anion Gap BUN Creatinine GFR Calculation Glucose Calcium Total Bilirubin AST ALT Alkaline Phosphatase Total Protein Albumin Globulin Albumin/Globulin Ratio Specimen Source TNP SARS Virus RNA (PCR) TNP SARS-CoV-2 RNA (RT-PCR) TNP Preliminary micro results at discharge 11/17/19 19:04 Blood Culture - Preliminary Blood 11/17/19 19:14 Blood Culture - Preliminary Blood Medical - DS: A/P - Patient/Caregiver Discharge Instructions Activity: increase activity as tolerated Diet: Regular Diet Prescriptions: Azithromycin 250 mg PO DAILY #1 tab Transmission Status: Pending to [employer] [id number] Metoprolol Tartrate [Lopressor] 2.5 mg IV Q5M PRN #30 vial PRN Reason: Tachyarrhythmias Transmission Status: Pending to [employer] [address] Hydroxychloroquine [Plaquenil] 200 mg PO BID #5 tab Transmission Status: Pending to [employer] [address] guaiFENesin/DEXTROMETHORPHAN [Robitussin Dm] 10 ml PO Q6HP PRN #100 ml PRN Reason: Cough Transmission Status: Pending to [employer] [address] Other Amb Orders: Comprehensive Metabolic Panel Time Frame: 3 Days, Location: None Selected - Follow up Plan Follow up with: Mare Boyer ARNP [Primary Care Provider] - 12/03/19 10:30 am Disposition: Home, Self-Care Care Plan Goals: This discharge packet is provided to you to help keep you informed about your care. We want to ensure you get everything you need when you go home. You will also be receiving a call from us in a few days to follow up with you and see how you are doing since your discharge. This gives us a chance to listen to any concerns you maybe experiencing since you were discharged or any additional needs you may have, as well as providing us feedback on your care experience. We strive to always provide excellent care and thank you for your feedback and for choosing [facility]. Prognosis: Fair Rehab Potential: Good
== END 2019-11-19 12:57 | disposition home or self-care (01) | DRG 204 ==
LOC: ED 22:16 → ICU 11-17 01:25
PROVIDERS: ADMIT Internal Medicine; ATTEND Internal Medicine